=== PATIENT | female | born 1940 | race Caucasian/White ===

== ENCOUNTER 2016-12-18 10:54 | Emergency (ER) | payer MEDICARE, OTHER ==
[~2016-12-18] VITALS: Ht 162.6 cm; Wt 73.9 kg
--- NOTE | ~2016-12-18 | CR116 ---
[facility] A Service of [facility] & [facility] [place] RADIOLOGY TEXT RESULTS PATIENT: MARCELINA PRADHAN LOCATION: CFTX : 38 UNIT #: [id number] AGE: [address]: Danya Pitts SEX: F ORDER DR: [id number] [facility] [address] [place], [place] [address] [id number] E MR#: [id number] Acc #: [id number] NAME: MARCELINA PRADHAN : 1940 SEX: F STUDY DATE/TIME: 12/18/2016 11:47 UNIT: [facility] ROOM: STUDY DESCRIPTION: CR Finger 2 View Thumb Lt Attending Physician: Danya Pitts P.A.-C. Ordering Physician: Danya Pitts P.A.-C. Primary Care Physician: Cruzito Cuellar Jr., M.D. MEDICAL IMAGING REPORT This report is preliminary unless electronic signature is present EXAM Left thumb, 3 views; 12/18/2016, 1147 hours. CLINICAL HISTORY Patient fell onto concrete steps 5 days ago with trauma to thumb. Persistent pain and bruising at thumb. COMPARISON None. FINDINGS AP, lateral and oblique views demonstrate advanced osteoarthritis at the first carpometacarpal joint and moderate osteoarthritis at the metacarpal phalangeal joint and the interphalangeal joint of the thumb. There is a minimally displaced corner type fracture at the proximal aspect of the proximal phalanx of the thumb extending into the interphalangeal joint. IMPRESSION 1. Acute minimally displaced fracture of the corner of the proximal aspect of the distal phalanx of the thumb extending into the interphalangeal joint of the thumb. 2. There is moderate spurring at the interphalangeal joint of the thumb, the first carpometacarpal phalangeal joint and advanced osteoarthritis at the first carpometacarpal joint. Dictated by... Jessy Sifuentes M.D. THIS IS AN ELECTRONICALLY VERIFIED REPORT Jessy Sifuentes M.D. at 12/19/2016 9:15 AM [facility] A Service of [facility] & [facility] [place] RADIOLOGY TEXT RESULTS PATIENT: MARCELINA PRADHAN LOCATION: [facility] : 39 UNIT #: [id number] AGE: [address]: Danya Pitts SEX: F ORDER DR: TD: 12/18/2016 17:32 JOB #: [id number] MEDICAL IMAGING REPORT Page 1 of 1 COPY
== END 2016-12-18 12:34 | disposition home or self-care (01) ==
LOC: CED 10:54 → CFTX 10:54
DX: S62.512A Displaced fracture of proximal phalanx of left thumb, initial encounter for closed fracture (principal); W22.8XXA Striking against or struck by other objects, initial encounter; Y92.89 Other specified places as the place of occurrence of the external cause
CPT/HCPCS: 29125; 73140; 99283